=== PATIENT | male | born 1950 | race Caucasian/White ===

== ENCOUNTER 2018-07-21 09:43 | Outpatient (REF) | payer MEDICARE, SELFPAY ==
[2018-07-21 19:52] LABS: HCT 36.1 % (40.0-50.0); Mean Corp. HGB Concentration 33.2 g/dL (32.0-36.0); Mean Corpuscular Hemoglobin 30.5 pg (27.0-33.0); Mean Corpuscular Volume 91.9 fL (80-95); Platelet Count 243 x1000/uL (130-400); RBC 3.93 m/cumm (4.50-6.00); White Blood Cell Count 9.98 k/cumm (4.4-10.8)
[2018-07-21 20:42] LABS: ALT 23 U/L (12-78); AST 29 U/L (15-37); Albumin 3.1 g/dL (3.4-5.0); Alkaline Phosphatase 179 U/L (46-116); Anion Gap 10.6 mmol/L (3-11); BUN 2 mg/dL (7-18); Bilirubin, Total 0.4 mg/dL (0.2-1.0); CO2 28.4 mmol/L (21.0-32.0); Calcium 9.3 mg/dL (8.5-10.1); Chloride 95 mmol/L (98-107); Glucose 109 mg/dL (70-100); Potassium 3.5 mmol/L (3.5-5.1); Sodium 134 mmol/L (136-145); Total Protein 7.6 g/dL (6.4-8.2)
== END 2018-07-21 10:03 ==
LOC: NCHCN 09:43
PROVIDERS: PCP Physician Assistant Medical; Visit Provider Physician Assistant Medical
DX: R16.0 Hepatomegaly, not elsewhere classified (principal); K92.2 Gastrointestinal hemorrhage, unspecified; E87.1 Hypo-osmolality and hyponatremia
CPT/HCPCS: 80053; 85027

== ENCOUNTER 2018-12-03 09:04 | Outpatient (REF) | payer MEDICARE, SELFPAY ==
[2018-12-03 20:31] LABS: ALT 14 U/L (16-63); AST 17 U/L (15-37); Albumin 2.9 g/dL (3.4-5.0); Alkaline Phosphatase 133 U/L (46-116); Anion Gap 9.6 mmol/L (3-11); BUN 4 mg/dL (7-18); Bilirubin, Total 0.3 mg/dL (0.2-1.0); CO2 28.4 mmol/L (21.0-32.0); CREATININE 0.98 mg/dL (0.70-1.30); Calcium 8.7 mg/dL (8.5-10.1); Chloride 100 mmol/L (98-107); Glucose 117 mg/dL (70-100); Potassium 3.9 mmol/L (3.5-5.1); Sodium 138 mmol/L (136-145); Total Protein 7.1 g/dL (6.4-8.2)
[2018-12-03 20:32] LABS: Folate > 20.0 ng/mL (8.6-20.0)
== END 2018-12-03 09:24 ==
LOC: NCHCN 09:04
PROVIDERS: PCP Physician Assistant Medical; Visit Provider Nurse Practitioner Family
DX: F10.10 Alcohol abuse, uncomplicated (principal); E87.1 Hypo-osmolality and hyponatremia
CPT/HCPCS: 80053; 82746

== ENCOUNTER 2019-03-03 11:16 | Outpatient (REF) | payer MEDICARE, SELFPAY ==
[2019-03-03 20:00] LABS: Anion Gap 10.9 mmol/L (3-11); BUN 4 mg/dL (7-18); CO2 30.1 mmol/L (21.0-32.0); CREATININE 0.93 mg/dL (0.70-1.30); Chloride 98 mmol/L (98-107); Glucose 110 mg/dL (74-106); Magnesium 1.8 mg/dL (1.8-2.4); Potassium 3.3 mmol/L (3.5-5.1); Sodium 139 mmol/L (136-145); Vitamin B12 571 pg/mL (193-986)
[2019-03-03 20:05] LABS: Folate > 20.0 ng/mL (8.6-20.0)
== END 2019-03-03 11:36 ==
LOC: NCHCN 11:16
PROVIDERS: PCP Physician Assistant Medical; Visit Provider Nurse Practitioner Family
DX: F10.11 Alcohol abuse, in remission (principal); R03.0 Elevated blood-pressure reading, without diagnosis of hypertension
CPT/HCPCS: 80048; 82607; 82746; 83735

== ENCOUNTER 2019-03-24 09:51 | Outpatient (REF) | payer MEDICARE, SELFPAY ==
[2019-03-24 19:21] LABS: Anion Gap 6.1 mmol/L (3-11); BUN 5 mg/dL (7-18); CO2 29.9 mmol/L (21.0-32.0); Calcium 8.8 mg/dL (8.5-10.1); Chloride 101 mmol/L (98-107); Glucose 109 mg/dL (74-106); Sodium 137 mmol/L (136-145)
== END 2019-03-24 10:11 ==
LOC: NCHCN 09:51
PROVIDERS: PCP Physician Assistant Medical; Visit Provider Nurse Practitioner Family
DX: E87.6 Hypokalemia (principal); R03.0 Elevated blood-pressure reading, without diagnosis of hypertension
CPT/HCPCS: 80048

== ENCOUNTER 2019-09-23 08:52 | Outpatient (REF) | payer MEDICARE, SELFPAY ==
[2019-09-23 20:23] LABS: Anion Gap 9.7 mmol/L (3-11); BUN 23 mg/dL (7-18); CO2 28.3 mmol/L (21.0-32.0); CREATININE 1.32 mg/dL (0.70-1.30); Calcium 9.7 mg/dL (8.5-10.1); Chloride 101 mmol/L (98-107); Glucose 122 mg/dL (74-106); Potassium 4.2 mmol/L (3.5-5.1); Sodium 139 mmol/L (136-145); Vitamin B12 519 pg/mL (193-986)
[2019-09-23 20:28] LABS: Folate > 20.0 ng/mL (8.6-20.0)
== END 2019-09-23 09:12 ==
LOC: NCHCN 08:52
PROVIDERS: PCP Nurse Practitioner Family; Visit Provider Nurse Practitioner Family
DX: F10.11 Alcohol abuse, in remission (principal); E87.6 Hypokalemia
CPT/HCPCS: 80048; 82607; 82746; 83735

== ENCOUNTER 2020-04-04 09:30 | Outpatient (REF) | payer MEDICARE, SELFPAY ==
[2020-04-04 19:28] LABS: ALT 24 U/L (16-63); AST 21 U/L (15-37); Albumin 3.9 g/dL (3.4-5.0); Alkaline Phosphatase 91 U/L (46-116); Anion Gap 7.3 mmol/L (3-11); BUN 11 mg/dL (7-18); Bilirubin, Direct 0.08 mg/dL (0.00-0.20); Bilirubin, Total 0.5 mg/dL (0.2-1.0); CO2 27.7 mmol/L (21.0-32.0); CREATININE 1.22 mg/dL (0.70-1.30); Calcium 9.5 mg/dL (8.5-10.1); Chloride 103 mmol/L (98-107); Estimated GFR 59.25 (mL/min/1.73m2); Glucose 140 mg/dL (74-106); Sodium 138 mmol/L (136-145); Total Protein 7.9 g/dL (6.4-8.2)
== END 2020-04-04 09:50 ==
LOC: NCHCN 09:30
PROVIDERS: PCP Nurse Practitioner Family; Visit Provider Nurse Practitioner Family
DX: R73.9 Hyperglycemia, unspecified (principal); E87.1 Hypo-osmolality and hyponatremia; R16.0 Hepatomegaly, not elsewhere classified
CPT/HCPCS: 80048; 80076; 83036

== ENCOUNTER 2020-09-26 18:52 | Outpatient (REF) | payer OTHER, SELFPAY | END 2020-09-26 18:53 | disposition home or self-care (01) | LOC: NCHCN 18:52 | PROVIDERS: PCP Nurse Practitioner Family; Visit Provider Nurse Practitioner Family | DX: L08.89 Other specified local infections of the skin and subcutaneous tissue (principal); Z89.412 Acquired absence of left great toe | CPT/HCPCS: 87070; 87205 ==

== ENCOUNTER 2020-11-03 13:24 | Outpatient (REF) | payer OTHER, SELFPAY ==
[2020-11-03 19:21] LABS: ALT 21 U/L (16-63); AST 16 U/L (15-37); Albumin 3.9 g/dL (3.4-5.0); Alkaline Phosphatase 73 U/L (46-116); Anion Gap 7.5 mmol/L (3-11); BUN 12 mg/dL (7-18); Bilirubin, Total 0.4 mg/dL (0.2-1.0); CO2 27.5 mmol/L (21.0-32.0); CREATININE 1.1 mg/dL (0.70-1.30); Calcium 9.2 mg/dL (8.5-10.1); Chloride 104 mmol/L (98-107); Glucose 96 mg/dL (74-106); Potassium 4.4 mmol/L (3.5-5.1); Sodium 139 mmol/L (136-145); Total Protein 7.4 g/dL (6.4-8.2)
== END 2020-11-03 13:25 | disposition home or self-care (01) ==
LOC: NCHCN 13:24
PROVIDERS: PCP Nurse Practitioner Family; Visit Provider Nurse Practitioner Family
DX: R73.03 Prediabetes (principal)
CPT/HCPCS: 80053

== ENCOUNTER 2020-12-15 01:10 | Outpatient (CLI) | payer OTHER, SELFPAY ==
--- NOTE | 2020-12-15 | DI.NM_ITS ---
APPROVED REPORT Exam: Pharmacologic Patient Location: Out-Patient Room/Bed: Stress Nurse: Yaquelin Hatfield RN Ordering Provider:EMILIA SOOD, Contact Number: [phone] BMI: 26.57 Baseline Rhythm: Sinus Rhythm Comment: 1 DHB Indications: Chest pain, SOB Medical History Medical History: Hypertension, prediabetes, smoker (former), obesity, PVD, venous stasis, neuropathy, multiple finger amputation, left hallux amputation Cardiac Medications: atorvastatin, metformin, pantoprazole, aspirin, gabapentin, sildenaftil Allergies: Penicillins Cardiac Risk Factors: Hypertension, prediabetes, smoker (former), obesity, PVD Previous Cardiac Procedures: None Pretest Chest Pain Characteristics: None Exercise History: Sedentary Physical Disabilities: Recent L hallux amputation Lung Sounds: Clear to auscultation Heart Sounds: Regular Stress Test Details Test: Pharmacologic stress testing performed using 0.4 mg of regadenoson per 5 mL given IV over 10 s econds. Reason for pharmacologic stress test: physical limitation. Nuclear Acquisition: Rest Tc-99m/Stress Tc-99m 1 day Rest Isotope: Tc-99m Sestamibi. Dose: 9.5 Date: 12/15/2020 Injection Time: 0840 Stress Isotope: Tc-99m Sestamibi. Dose: 32.6 Date: 12/15/2020 Injection Time: 1010 HR Resting HR Supine: 67 bpm Max Heart Rate (APMHR): 152.530228 bpm Target HR (85% APMHR): 129.973318 bpm Max HR Achieved: 112 bpm % of APMHR: 73.68 Recovery HR: 97 bpm BP Resting BP Supine: 172/76 mmHg Max BP: 172/76 mmHg Recovery BP: 164/72 mmHg ECG Resting ECG: Sinus Rhythm, 1 DHB Ectopy: None Stress ECG: Sinus Tachycardia, [address] Change: Horizontal ST depression Lead(s): II, III, aVF Maximum ST Deviation: 1 mm Arrhythmia: Occasional PAC, rare PVC Comment: ST depression approx 2 minutes after lexiscan injection. Flipped T waves lead V2 at same nadiya e. Recovery ECG: Sinus Rhythm, 1DHB Recovery ST Change: No significant ST segment changes noted Recovery Arrhythmia: None Clinical Stress Symptoms: Chest pain, nausea, emesis Rate Pressure Product: [id number] Stress ECG Conclusion 1. Resting electrocardiogram was normal 2. Patient underwent pharmacologic stress with regadenoson 3. Peak heart rate achieved was 73 percent of predicted for age 4. Electrocardiographically the test was consistent with myocardial ischemia with approximately [address] depression noted in leads II, III, aVF, V4 and V5 5. Cardiac symptoms included chest pain, nausea and vomiting Stress Test Summary STAGE HR BP Symptoms NOTES Supine 67 172/76 SpO2 97% 1 min post Lexiscan injection 94 170/66 R side chest pain, moderate SpO2 99% 3 min post Lexiscan injection 84 168/70 SpO2 99% 6 min post Lexiscan injection 97 164/72 Chest pain resolved. Nausea and emesis. SpO2 99% 9 min post Lexiscan injection Symptoms resolved. SpO2 98% Pt was unable to exercise due to recent L hallux amputation and inability to wear proper footware. [place] lexiscan test performed. Pt felt R side chest pain 1 minute after injection, unable to quantify w/ numerical scale, rated as moderate. Nausea and emesis shortly after. All symptoms resolved prior t o pt leaving testing area for remainder of MPI. MPI Conclusion Myocardial perfusion imaging was consistent with anteroapical ischemia EF with stress 57% Radiologist Interpretation Radiologist agrees with Cloth Washer Operator's Interpretation. Radiologist Interpretation by: Patricia Campos MD Interpretation Date/Time: 12/16/2020 15:41:28
--- NOTE | 2020-12-15 | DI.RAD_ITS ---
Exam(s) XR CHEST 2V PA LATERAL EXAM: XR CHEST 2V PA LATERAL CLINICAL HISTORY: SOB, R06.02. TECHNIQUE: 2D digital imaging was performed. COMPARISON: No exams were available for comparison FINDINGS: Heart size is normal. The mediastinum is not widened. Lungs are clear. No infiltrates nor pleural effusions. IMPRESSION: No acute pulmonary findings. DATA REPOSITORY: RADIATION DOSE DELIVERED:
[2020-12-15] MEDS: Regadenoson 0.4 MG/5 ML SYR IVP (10:33)
== END 2020-12-15 01:30 ==
PROVIDERS: PCP Nurse Practitioner Family; Visit Provider Nurse Practitioner Family
DX: I25.9 Chronic ischemic heart disease, unspecified (principal); R07.9 Chest pain, unspecified; I10 Essential (primary) hypertension; R06.02 Shortness of breath; R73.03 Prediabetes; Z87.891 Personal history of nicotine dependence; E66.9 Obesity, unspecified
CPT/HCPCS: 78452; 93016; 93018; 71046; 93017; J2785

== ENCOUNTER → 2020-12-30 12:21 | Outpatient (BNVA) | payer OTHER, SELFPAY | PROVIDERS: PCP Nurse Practitioner Family; Referring Provider Nurse Practitioner Family; Visit Provider Internal Medicine Cardiovascular Disease | DX: I20.9 Angina pectoris, unspecified (principal); I73.9 Peripheral vascular disease, unspecified; R94.39 Abnormal result of other cardiovascular function study; Z87.891 Personal history of nicotine dependence; E11.9 Type 2 diabetes mellitus without complications | CPT/HCPCS: 93005; 99203 ==

== ENCOUNTER 2021-02-03 12:36 | Outpatient (REF) | payer MEDICARE, SELFPAY ==
[2021-02-03 19:03] LABS: ALT 29 U/L (16-63); Anion Gap 6.5 mmol/L (3-11); BUN 11 mg/dL (7-18); CO2 28.5 mmol/L (21.0-32.0); CREATININE 1.1 mg/dL (0.70-1.30); Calcium 9.2 mg/dL (8.5-10.1); Chloride 103 mmol/L (98-107); Glucose 98 mg/dL (74-106); LDL CHOLESTEROL 71 mg/dL (<100); Potassium 4.9 mmol/L (3.5-5.1); Sodium 138 mmol/L (136-145)
[2021-02-03 19:15] LABS: Creatine Kinase 120 U/L (39-308)
== END 2021-02-03 12:37 | disposition home or self-care (01) ==
LOC: NCHCN 12:36
PROVIDERS: PCP Nurse Practitioner Family; Visit Provider Internal Medicine
DX: I73.9 Peripheral vascular disease, unspecified (principal); R73.03 Prediabetes; R60.9 Edema, unspecified
CPT/HCPCS: 80048; 82550; 83721; 84460

== ENCOUNTER → 2021-02-27 10:50 | Outpatient (BNVA) | payer MEDICARE, SELFPAY | PROVIDERS: PCP Nurse Practitioner Family; Referring Provider Nurse Practitioner Family; Visit Provider Internal Medicine Cardiovascular Disease | DX: I25.10 Atherosclerotic heart disease of native coronary artery without angina pectoris (principal); R03.0 Elevated blood-pressure reading, without diagnosis of hypertension; I73.9 Peripheral vascular disease, unspecified; Z95.5 Presence of coronary angioplasty implant and graft; Z98.890 Other specified postprocedural states | CPT/HCPCS: 99214; 99213 ==

== ENCOUNTER 2021-06-20 18:44 | Outpatient (REF) | payer MEDICARE, SELFPAY ==
[2021-06-20 20:02] LABS: Anion Gap 6.7 mmol/L (3-11); BUN 21 mg/dL (7-18); CO2 28.3 mmol/L (21.0-32.0); CREATININE 1.3 mg/dL (0.70-1.30); Calcium 8.8 mg/dL (8.5-10.1); Chloride 107 mmol/L (98-107); Glucose 109 mg/dL (74-106); Potassium 4.2 mmol/L (3.5-5.1); Sodium 142 mmol/L (136-145)
[2021-06-20 20:06] LABS: Hemoglobin A1C 6.3 % (<5.7)
== END 2021-06-20 18:45 | disposition home or self-care (01) ==
LOC: NCHCN 18:44
PROVIDERS: PCP Nurse Practitioner Family; Visit Provider Nurse Practitioner Family
DX: R73.03 Prediabetes (principal)
CPT/HCPCS: 80048; 83036

== ENCOUNTER → 2021-08-28 13:13 | Outpatient (BNVA) | payer MEDICARE, SELFPAY | PROVIDERS: PCP Nurse Practitioner Family; Visit Provider Internal Medicine Cardiovascular Disease | DX: I25.10 Atherosclerotic heart disease of native coronary artery without angina pectoris (principal); R03.0 Elevated blood-pressure reading, without diagnosis of hypertension; I73.9 Peripheral vascular disease, unspecified | CPT/HCPCS: 99214; 99213 ==

== ENCOUNTER → 2022-03-05 13:35 | Outpatient (BNVA) | payer MEDICARE, SELFPAY | PROVIDERS: PCP Nurse Practitioner Family; Visit Provider Internal Medicine Cardiovascular Disease | DX: Z95.5 Presence of coronary angioplasty implant and graft (principal); I25.10 Atherosclerotic heart disease of native coronary artery without angina pectoris; I73.9 Peripheral vascular disease, unspecified | CPT/HCPCS: 99214 ==

== ENCOUNTER 2022-03-23 12:31 | Outpatient (REF) | payer MEDICARE, SELFPAY ==
[2022-03-23 19:15] LABS: BUN 13 mg/dL (7-18); CREATININE 1.2 mg/dL (0.70-1.30); Chloride 99 mmol/L (98-107); Estimated GFR 65.46 (mL/min/1.73m2); Glucose 116 mg/dL (74-106); Potassium 4.7 mmol/L (3.5-5.1); Sodium 134 mmol/L (136-145)
== END 2022-03-23 12:32 | disposition home or self-care (01) ==
LOC: NCHCN 12:31
PROVIDERS: PCP Nurse Practitioner Family; Visit Provider Nurse Practitioner Family
DX: E11.9 Type 2 diabetes mellitus without complications (principal); I25.10 Atherosclerotic heart disease of native coronary artery without angina pectoris
CPT/HCPCS: 80048

== ENCOUNTER → 2022-08-30 11:24 | Outpatient (BNVA) | payer MEDICARE, SELFPAY | PROVIDERS: PCP Nurse Practitioner Family; Visit Provider Internal Medicine Cardiovascular Disease | DX: I25.10 Atherosclerotic heart disease of native coronary artery without angina pectoris (principal); I73.9 Peripheral vascular disease, unspecified | CPT/HCPCS: 99213 ==

== ENCOUNTER 2022-09-27 13:29 | Outpatient (REF) | payer MEDICARE, SELFPAY ==
[2022-09-27 19:01] LABS: BUN 12 mg/dL (7-18); CREATININE 1.2 mg/dL (0.70-1.30); Calcium 9.3 mg/dL (8.5-10.1); Chloride 102 mmol/L (98-107); Estimated GFR 65.06 (mL/min/1.73m2); Glucose 110 mg/dL (74-106); Potassium 5.4 mmol/L (3.5-5.1); Sodium 138 mmol/L (136-145)
== END 2022-09-27 13:30 | disposition home or self-care (01) ==
LOC: NCHCN 13:29
PROVIDERS: PCP Nurse Practitioner Family; Visit Provider Nurse Practitioner Family
DX: E11.9 Type 2 diabetes mellitus without complications (principal)
CPT/HCPCS: 80048

== ENCOUNTER 2022-10-08 20:21 | Outpatient (REF) | payer MEDICARE, SELFPAY ==
--- OUTSIDE RECORDS SUMMARY | 2022-10-08 20:29 | XMS_ITS | Continuity of Care Document ---
Author Name Unknown Organization [facility] Address [address] [place] [address] Care Team Providers Care Director Of Search Engine Optimization Name Role Phone Mazin Hansen Primary Care Physician Encounter [facility] Date(s): 10/02/22 - 10/02/[address] [address] Discharge Disposition: Home or Self Care Attending Physician: Mazin Hansen MD Admitting Physician: Mazin Hansen MD Referring Physician: Mazin Hansen MD Allergies, Adverse Reactions, Alerts Substance Reaction Severity Status penicillins Swollen face Unknown Active Immunizations Given and Recorded Vaccine Date Status Refusal Reason tetanus/diphth/pertuss (Tdap) adult/adol 05/19/18 Recorded Results Laboratory List Name Date Creatinine 10/02/22 Most recent to oldest [Reference Range]: 1 eGFR Non-AA [>=60] 71 (10/02/22 8:59 AM) eGFR AA [>=60] 71 (10/02/22 8:59 AM) Creatinine Level [0.70-1.30 mg/dL] 1.11 mg/dL (10/02/22 8:59 AM) Social History Social History Type Response Sex Male Patient Care team information Care Team Personnel Name: Mazin Hansen MD Position: No Access Member Role: Primary Care Physician Address: Address: [facility] [address] [place] [address]- Care Team Related Persons Name: PARESH BLANCAS Address: Home
--- OUTSIDE RECORDS SUMMARY | 2022-10-08 20:29 | XMS_ITS | Continuity of Care Document ---
Author Name Unknown Organization [facility] Address [address] [place] [address] Care Team Providers Care Foreman/Project Manager Name Role Phone Mazin Stearns Primary Care Physician Encounter [facility] Date(s): 01/04/22 - 01/04/[address] [address] Discharge Disposition: Home or Self Care Attending Physician: Marlin Chatterjee NP Admitting Physician: Marlin Chatterjee NP Referring Physician: Marlin Chatterjee BOX MAKER PAPERBOARD Allergies, Adverse Reactions, Alerts Substance Reaction Severity Status penicillins Swollen face Unknown Active Immunizations Given and Recorded Vaccine Date Status Refusal Reason tetanus/diphth/pertuss (Tdap) adult/adol 05/19/18 Recorded Social History Social History Type Response Sex Male Patient Care team information Personnel Name: Mazin Stearns MD Address: Address: [address] [address]
--- OUTSIDE RECORDS SUMMARY | 2022-10-08 20:29 | XMS_ITS | Continuity of Care Document ---
Author Name Unknown Organization [facility] Address [address] [place] [address] Care Team Providers Care Cone Sewer Name Role Phone Mazin Stearns Primary Care Physician Encounter [facility] Date(s): 03/29/22 - 03/29/[address] [address] Discharge Disposition: Home or Self Care Attending Physician: Marlin Chatterjee NP Admitting Physician: Marlin Chatterjee NP Referring Physician: Marlin Chatterjee THEATRE ARTS PROFESSOR Allergies, Adverse Reactions, Alerts Substance Reaction Severity Status penicillins Swollen face Unknown Active Immunizations Given and Recorded Vaccine Date Status Refusal Reason tetanus/diphth/pertuss (Tdap) adult/adol 05/19/18 Recorded Social History Social History Type Response Sex Male Patient Care team information Personnel Name: Mazin Stearns MD Address: Address: [address] [address]
--- OUTSIDE RECORDS SUMMARY | 2022-10-08 20:29 | XMS_ITS | Continuity of Care Document ---
Author Name Unknown Organization [facility] Address [address] [place] [address] Care Team Providers Care Building Maintenance Mechanic Name Role Phone Mazin Hansen Primary Care Physician Encounter [facility] Date(s): 08/30/22 - 08/30/[address] [address] Discharge Disposition: Home or Self Care Attending Physician: Marlin Chatterjee NP Admitting Physician: Marlin Chatterjee NP Referring Physician: Marlin Chatterjee LOCAL COMPANY TRUCK DRIVER Allergies, Adverse Reactions, Alerts Substance Reaction Severity Status penicillins Swollen face Unknown Active Immunizations Given and Recorded Vaccine Date Status Refusal Reason tetanus/diphth/pertuss (Tdap) adult/adol 05/19/18 Recorded Social History Social History Type Response Sex Male Patient Care team information Care Team Personnel Name: Mazin Hansen MD Position: No Access Member Role: Primary Care Physician Address: Address: [facility] [address] [place], [place] [address] Care Team Related Persons Name: PARESH BLANCAS Address: Home
[2022-10-08 20:55] LABS: Potassium 3.9 mmol/L (3.5-5.1)
== END 2022-10-08 20:22 | disposition home or self-care (01) ==
LOC: NCHCN 20:21
PROVIDERS: PCP Nurse Practitioner Family; Visit Provider Nurse Practitioner Family
DX: E87.5 Hyperkalemia (principal)
CPT/HCPCS: 84132

== ENCOUNTER 2023-04-02 15:05 | Outpatient (REF) | payer MEDICARE, SELFPAY ==
[2023-04-02 19:03] LABS: Calculated LDL 46 mg/dL (<100); Cholesterol 100 mg/dL (<200); HDL Cholesterol 39 mg/dL (40-60); Triglyceride 79 mg/dL (<150)
== END 2023-04-02 15:06 | disposition home or self-care (01) ==
LOC: NCHCN 15:05
PROVIDERS: PCP Nurse Practitioner Family; Visit Provider Nurse Practitioner Family
DX: I25.10 Atherosclerotic heart disease of native coronary artery without angina pectoris (principal)
CPT/HCPCS: 80061

== ENCOUNTER 2023-07-10 11:48 | Outpatient (REF) | payer MEDICARE, SELFPAY ==
[2023-07-10 21:02] LABS: BUN 12 mg/dL (7-18); CREATININE 1.1 mg/dL (0.70-1.30); Calcium 9.2 mg/dL (8.5-10.1); Chloride 102 mmol/L (98-107); Estimated GFR 72.22 (mL/min/1.73m2); Glucose 103 mg/dL (74-106); Potassium 4.3 mmol/L (3.5-5.1); Sodium 137 mmol/L (136-145)
[2023-07-10 21:14] LABS: Hemoglobin A1C 6.4 % (<5.7)
== END 2023-07-10 11:49 | disposition home or self-care (01) ==
LOC: NCHCN 11:48
PROVIDERS: PCP Nurse Practitioner Family; Visit Provider Nurse Practitioner Family
DX: E11.9 Type 2 diabetes mellitus without complications (principal)
CPT/HCPCS: 80048; 83036

== ENCOUNTER 2023-08-29 08:23 | Outpatient (CLI) | payer MEDICARE, SELFPAY | END 2023-08-29 08:24 | disposition home or self-care (01) | LOC: DI.CARD 08:25 | PROVIDERS: PCP Nurse Practitioner Family; Visit Provider Internal Medicine Cardiovascular Disease | CPT/HCPCS: 93010 ==

== ENCOUNTER 2023-09-26 08:26 | Outpatient (CLI) | payer MEDICARE, SELFPAY ==
--- NOTE | 2023-09-26 08:15 | RT.EKG_ITS ---
APPROVED REPORT Exam: Resting ECG Reason for Exam: CAD Patient Location: O HR:60 bpm ECG Measurements Heart Rate 60 AXIS MI 218 P 12 QRSd 100 QRS 4 QT 421 T 38 QTc 421 Conclusion Sinus rhythm...normal P axis, V-rate 50- 99 Borderline prolonged MI interval...MI >212, V-rate 50- 90 Abnormal R-wave progression, early transition...QRS area>0 in V2
== END 2023-09-26 08:27 | disposition home or self-care (01) ==
LOC: DI.CARD 08:26
PROVIDERS: PCP Nurse Practitioner Family; Visit Provider Internal Medicine Cardiovascular Disease
DX: I25.10 Atherosclerotic heart disease of native coronary artery without angina pectoris
CPT/HCPCS: 93010

== ENCOUNTER → 2023-09-26 13:00 | Outpatient (BNVA) | payer MEDICARE, SELFPAY | PROVIDERS: PCP Nurse Practitioner Family; Referring Provider Nurse Practitioner Family; Visit Provider Internal Medicine Cardiovascular Disease | DX: R94.31 Abnormal electrocardiogram [ECG] [EKG] (principal); I25.10 Atherosclerotic heart disease of native coronary artery without angina pectoris; I73.9 Peripheral vascular disease, unspecified | CPT/HCPCS: 93005; 99213 ==

== ENCOUNTER 2024-07-21 13:22 | Outpatient (REF) | payer MEDICARE, SELFPAY ==
[2024-07-21 19:50] LABS: ALT 28 U/L (16-63); AST 23 U/L (15-37); Albumin 3.7 g/dL (3.4-5.0); Alkaline Phosphatase 85 U/L (46-116); Anion Gap 6.4 mmol/L (3-11); BUN 8 mg/dL (7-18); Bilirubin, Total 0.8 mg/dL (0.2-1.0); CO2 27.6 mmol/L (21.0-32.0); CREATININE 1.3 mg/dL (0.70-1.30); Calcium 8.8 mg/dL (8.5-10.1); Calculated LDL 32 mg/dL (<100); Chloride 104 mmol/L (98-107); Cholesterol 94 mg/dL (<200); Estimated GFR 58.73 (mL/min/1.73m2); Glucose 106 mg/dL (74-106); HDL Cholesterol 36 mg/dL (>or=40); Potassium 4.5 mmol/L (3.5-5.1); Sodium 138 mmol/L (136-145); Triglyceride 133 mg/dL (<150)
== END 2024-07-21 13:23 | disposition home or self-care (01) ==
LOC: NCHCN 13:22
PROVIDERS: PCP Nurse Practitioner Family; Visit Provider Nurse Practitioner Family
DX: E11.40 Type 2 diabetes mellitus with diabetic neuropathy, unspecified (principal); I25.10 Atherosclerotic heart disease of native coronary artery without angina pectoris
CPT/HCPCS: 80053; 80061

== ENCOUNTER 2024-08-03 00:11 | Outpatient (CLI) | payer MEDICARE, SELFPAY ==
--- NOTE | 2024-08-03 | DI.NM_ITS ---
APPROVED REPORT Exam: Pharmacologic Patient Location: Out-Patient Room/Bed: Stress Nurse: Denise Olea RN Ordering Provider:EMILIA SOOD, Contact Number: [phone] BMI: 30.40 Baseline Rhythm: Sinus Bradycardia Indications: Chest pain Medical History Medical History: Depression, low BP, CAD, angina pectoris, alcohol abuse (in remission), chronic poly neuropathy, chronic venous stasis, PAD, SOB, HTN, hx of falls, overweight Cardiac Medications: Aspirin, atorvastatin, plavix, escitalopram, gabapentin, magnesium oxide, metfor min, metoprolol succinate, nitro, pantoprazole, prazosin, sildenafil, sodium chloride, lisinopril Allergies: Penicillins Cardiac Risk Factors: Daibetes, HTN, PVD, CVD, former smoker Previous Cardiac Procedures: HX cardiac stents Pretest Chest Pain Characteristics: None Exercise History: Sedentary Physical Disabilities: LE Lung Sounds: Clear to auscultation Heart Sounds: Irregular Stress Test Details Test: Pharmacologic stress testing performed using 0.4 mg of regadenoson per 5 mL given IV over 10 s econds. Reason for pharmacologic stress test: physical limitation. Nuclear Acquisition: Rest Tc-99m/Stress Tc-99m 1 day Rest Isotope: Tc-99m Sestamibi. Dose: 10.0 Date: 08/03/2024 Injection Time: 1100 Stress Isotope: Tc-99m Sestamibi. Dose: 30.0 Date: 08/03/2024 Injection Time: 1250 HR Resting HR Supine: 57 bpm Max Heart Rate (APMHR): 149 bpm Target HR (85% APMHR): 127 bpm Max HR Achieved: 84 bpm % of APMHR: 56 Recovery HR: 72 bpm BP Resting BP Supine: 154/72 mmHg Max BP: 158/74 mmHg Recovery BP: 140/58 mmHg ECG Resting ECG: Sinus Bradycardia Stress ECG: Sinus Rhythm ST Change: Nondiagnostic low heart rate Arrhythmia: Rare PVC's Recovery ECG: Sinus Rhythm Recovery ST Change: Nondiagnostic low heart rate Clinical Stress Symptoms: Patient denied Angina Score: None Rate Pressure Product: [id number] Stress ECG Conclusion 1. Resting electrocardiogram showed low voltage 2. Patient underwent testing using pharmacologic stress with regadenoson 3. Peak heart rate achieved was 56% of maximal predicted for age 4. The electrocardiographic portion of the test was nondiagnostic 5. See MPI report Stress Test Summary STAGE HR BP SpO2 Symptoms NOTES Supine 57 154/72 93% 1 min post Lexiscan injection 66 158/74 95% 3 min post Lexiscan injection 81 128/56 99% 6 min post Lexiscan injection 72 140/58 98% MPI Conclusion Myocardial perfusion is normal. There is no ischemia or evidence of prior infarction Ejection fraction is 77% with normal wall motion
[2024-08-03] MEDS: Regadenoson 0.4 MG/5 ML SYR IVP (12:58)
== END 2024-08-03 00:31 ==
LOC: DI 00:11
PROVIDERS: PCP Nurse Practitioner Family; Visit Provider Nurse Practitioner Family
DX: R07.9 Chest pain, unspecified (principal)
CPT/HCPCS: 78452; 93016; 93018; 93017; J2785

== ENCOUNTER → 2024-09-24 10:16 | Outpatient (BNVA) | payer MEDICARE, SELFPAY | PROVIDERS: PCP Nurse Practitioner Family; Referring Provider Nurse Practitioner Family; Visit Provider Podiatrist | DX: E11.42 Type 2 diabetes mellitus with diabetic polyneuropathy (principal); I73.89 Other specified peripheral vascular diseases; Z89.412 Acquired absence of left great toe; I25.10 Atherosclerotic heart disease of native coronary artery without angina pectoris; R09.89 Other specified symptoms and signs involving the circulatory and respiratory systems; R60.0 Localized edema; L65.9 Nonscarring hair loss, unspecified; R23.8 Other skin changes; L60.2 Onychogryphosis; L60.8 Other nail disorders; L85.8 Other specified epidermal thickening | CPT/HCPCS: 99214; 11720 ==

== ENCOUNTER 2025-01-14 09:36 | Outpatient (REF) | payer MEDICARE, SELFPAY ==
[2025-01-14 19:41] LABS: Anion Gap 8.4 mmol/L (3-11); BUN 12 mg/dL (7-18); CO2 28.6 mmol/L (21.0-32.0); Calcium 8.9 mg/dL (8.5-10.1); Chloride 103 mmol/L (98-107); Estimated GFR 64.25 (mL/min/1.73m2); Glucose 115 mg/dL (74-106); Potassium 4.5 mmol/L (3.5-5.1); Sodium 140 mmol/L (136-145)
== END 2025-01-14 09:37 | disposition home or self-care (01) ==
LOC: NCHCN 09:36
PROVIDERS: PCP Nurse Practitioner Family; Visit Provider Nurse Practitioner Family
DX: E11.40 Type 2 diabetes mellitus with diabetic neuropathy, unspecified (principal)
CPT/HCPCS: 80048

== ENCOUNTER → 2025-01-18 11:06 | Outpatient (BNVA) | payer MEDICARE, SELFPAY | PROVIDERS: PCP Nurse Practitioner Family; Referring Provider Nurse Practitioner Family; Visit Provider Podiatrist | DX: E11.42 Type 2 diabetes mellitus with diabetic polyneuropathy (principal); I73.89 Other specified peripheral vascular diseases; M79.675 Pain in left toe(s); M20.42 Other hammer toe(s) (acquired), left foot; R09.89 Other specified symptoms and signs involving the circulatory and respiratory systems; R60.0 Localized edema; L65.9 Nonscarring hair loss, unspecified; R23.8 Other skin changes; R23.4 Changes in skin texture; L60.2 Onychogryphosis; L60.3 Nail dystrophy; L60.8 Other nail disorders; L85.8 Other specified epidermal thickening | CPT/HCPCS: 11719; 11720 ==